=== PATIENT | male | born 1995 | race Caucasian/White ===

== ENCOUNTER 2024-01-30 22:00 | Emergency (ER) | payer SELFPAY ==
[~2024-01-30] VITALS: Ht 170.2 cm; Wt 71.7 kg
[2024-01-30 22:11] VITALS: BP 128/83; PULSE 65; RESP 16; TEMP 206.2; TEMP 96.8; O2SAT 99
[2024-01-31 00:11] VITALS: O2SAT 99
[2024-01-31] MEDS: KETOROLAC 60 MG/2 ML VIAL IM ONE (00:33)
[2024-01-31] MEDS ORDERED: IBUP-2213 PO (01:13)
== END 2024-01-31 01:34 | disposition home or self-care (01) ==
LOC: MED 22:00
DX: R07.89 Other chest pain (principal); Z79.1 Long term (current) use of non-steroidal anti-inflammatories (NSAID)
CPT/HCPCS: 71046; 96372; 99283; J1885